=== PATIENT | male | born 1945 | race Caucasian/White ===

== ENCOUNTER → 2017-03-31 | Outpatient (CLI) | payer MEDICARE, BC ==
[~2017-03-31] MED LIST: BLOOD PRESSURE MED; BYETTA10 MCG/0.0; BYETTA10 MCG/0.0 INJ; DESYREL100 MG PO; GLIMEPIRIDE2 MG PO; GLUCOVANCE; GLUCOVANCE 5/501 TA1; IMDUR-ER30 MG PO; LIPITOR40 MG PO; LISINOPRIL PO; METFORMIN HCL500 M1 PO; NAPROXEN PO; NITROGLYGERIN0.4 MG SL; PEPCID PO; PLAVIX PO; SIMVASTATIN80 MG PO; TOPROL XL PO; TRANXENE; TRANXENE PO; TRAZODONE; VYTORIN 10/80 T1 TAB; ZESTORETIC 20/21 TAB; ZOCOR
--- NOTE | ~2017-03-31 | CT71 ---
[facility] A Service of [facility] RADIOLOGY TEXT RESULTS PATIENT: MAURICIO GUILLEN LOCATION: [facility] : 45 UNIT #: [id number] AGE: [address]: Gena Manzo MD SEX: M ORDER DR: [id number] [address] [address] [id number] O MR#: [id number] Acc #: [id number] NAME: MAURICIO GUILLEN : 1945 SEX: M STUDY DATE/TIME: 03/31/2017 11:14 UNIT: [facility] ROOM: STUDY DESCRIPTION: CT Head Wo Contrast Attending Physician: Gena Manzo M.D. Referring Physician: Gena Manzo M.D. Ordering Physician: Gena Manzo M.D. Primary Care Physician: Gena Manzo M.D. MEDICAL IMAGING REPORT This report is preliminary unless electronic signature is present. EXAM CT scan of the head without contrast INDICTION Fell and it back of head on floor one week ago and lost conscious for a few seconds. Continuing right side headache off and on since then. The CT exam was performed with one or more of the following radiation dose reduction techniques: automatic exposure control, adjustment of mA and/or kV according to patient size, and iterative reconstruction. COMPARISON: 12/28/12 FINDINGS Axial unenhanced images were obtained through the brain. There is generalized atrophy. There is old ischemic change in the left frontal lobe measuring about 3 cm in diameter. There are no masses or extraaxial fluid collections or hemorrhage. No fractures identified. 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 Dictated by... Bernardo Muro M.D. THIS IS AN ELECTRONICALLY VERIFIED REPORT Bernardo Muro M.D. at 04/03/2017 11:40 AM DEANA/kar [facility] A Service [facility] RADIOLOGY TEXT RESULTS PATIENT: MAURICIO GUILLEN LOCATION: [facility] #: [id number] : 45 UNIT #: [id number] AGE: [address]: Gena Manzo MD SEX: M ORDER DR: TD: 04/03/2017 10:43 JOB #: [id number] MEDICAL IMAGING REPORT Page 1 of 1
== END | disposition home or self-care (01) ==
LOC: SCT 11:03
DX: S09.90XA Unspecified injury of head, initial encounter (principal); G31.9 Degenerative disease of nervous system, unspecified
CPT/HCPCS: 70450